=== PATIENT | female | born 1975 | race Caucasian/White ===

== ENCOUNTER 2016-12-26 11:02 | Outpatient (CLI) | payer MEDICAID ==
[~2016-12-26] VITALS: Ht 152.4 cm; Wt 90.9 kg
--- NOTE | ~2016-12-26 | HEMODYNAMI ---
PATIENT:GREG MCCLAIN MEDICAL RECORD: [id number] : 77 LOCATION:[facility] ADMISSION DATE: 12/26/16 Generatedon:12/26/201613:46 Patient name: GREG MCCLAIN Patient #: [id number] SSN: : [id number] Date of study: 12/26/2016 Page: Of Hemodynamic Procedure Report Patient Data Patient Demographics Procedure consent was obtained First Name: GREG Gender: Female Last Name: JOHNY : 1975 [facility] Initial: B Age: 41 year(s) Patient #: [id number] Race: Unknown Additional ID: [id number] Contact details Address: [address] [place] [address] State: [place] City: [facility] Zip code: [address] Past Medical History Allergies Allergen Reaction Date Comments Reported Penicillins 12/26/2016 Admission Admission Data Admission Date: 12/26/2016 Admission Time: 11:02 Procedure Procedure Types Cath Procedure Diagnostic Procedure LHC LHC w/Coronaries Miscellaneous Procedures Moderate Sedation up to 30 minutes Procedure Description Procedure Date Procedure Date: 12/26/2016 Procedure Start Time: 13:23 Procedure End Time: 13:46 Procedure Staff Name Function Jeremy Bocanegra MD Performing Physician Annalise Ritchie RT Scrub Cristopher Vizcarra RN Nurse Rafia Branham RT Monitor Procedure Data Cath Procedure Fluoroscopy Diagnostic fluoroscopy Total fluoroscopy Time: 7.2 time: 7.2 min min Diagnostic fluoroscopy Total fluoroscopy dose: 643 dose: 643 mGy mGy Contrast Material Contrast Material Type Amount (ml) Isovue 300 62 Entry Location Entry Primary Successful Side Size Upsize Upsize Entry Closure Aguilar ccessful Closure Location (Fr) 1 (Fr) 2 (Fr) Remarks Device Remarks Radial Right 6 Fr Mechanical artery Short Compression Estimated blood loss: 5 ml Diagnostic catheters Device Type Used For End Catheter Placement Diagnostic Terumo 5Fr LV Angiography [place] 110cm catheter Diagnostic Terumo 5Fr Right Coronary [place] 110cm catheter Angiography Terumo 5Fr Juan Jose 110cm Left Coronary catheter Angiography Diagnostic Infinity 5Fr Left Coronary JL 3.5 catheter Angiography Procedure Complications No complications Procedure Medications Medication Administration Route Dosage 0.9% NaCl I.V. 100 ml/hr Oxygen NC 2 l/min Heparin Flush Bag added to field 2 bags (1000units/500ml NS) Lidocaine 2% added to field 20 Versed I.V. 2 mg Fentanyl I.V. 100 mcg Radial Cocktail added to field 1 syringe (Verapomil 2mg/Nitro 400mcg/Heparin 1500units) Radial Cocktail I.A. 1 syringe (Verapomil 2mg/Nitro 400mcg/Heparin 1500units) Versed I.V. 1 mg Versed I.V. 1 mg Hemodynamics Rest Heart Rate: 97 (bpm) Pressure Samples Time Site Value (mmHg) Purpose Heart Use Rate(bpm) 13:26 LV 125/3,3 EDP 115 13:27 AO 115/77(94) Pullback 117 Gradients Valve Time Site Site 2 Mean SEP/DFP Peak To Heart Use 1 (mmHg) (sec/min) Peak Rate (mmHg) (bpm) Aortic 13:27 LV AO 8 17 117 115/77(94) Calculations Valve P-P Mean Valve Index Valve Source Name Gradient Area Flow (cm2) Aortic 8 8 Snapshots Pre Cath Intra NCS Post Cath Vital Signs Time Heart Resp SPO2 etCO2 [id number] NIBP (mmHg) Rhythm Pain Sedation Rate (ipm) (%) (mmHg) (mmHg) Status Level (bpm) 13:12:14 80 24 98 0 0 126/84(105) NSR 0 (11) 10(A) , No pain 13:16:57 105 19 98 0 0 121/77(101) NSR 0 (11) 10(A) , No pain 13:21:38 107 24 97 0 0 131/75(91) NSR 0 (11) 10(A) , No pain 13:26:20 126 25 95 0 0 124/72(98) NSR 0 (11) 10(A) , No pain 13:31:07 107 23 100 0 0 106/57(76) NSR 0 (11) 10(A) , No pain 13:35:46 105 26 100 0 0 121/70(90) NSR 0 (11) 10(A) , No pain 13:40:26 96 26 100 0 0 114/77(94) NSR 0 (11) 10(A) , No pain 13:45:07 94 27 100 0 0 122/73(100) NSR 0 (11) 10(A) , No pain Medications Time Medication Route Dose Verified Delivered Reason Notes Effectiveness by by 13:08:27 0.9% NaCl I.V. 100 Cristopher Cristopher Per ml/hr Zackery Vizcarra physician RN RN 13:08:44 Oxygen NC 2 l/min Cristopher Cristopher Per Zackery Vizcarra physician RN RN 13:09:05 Heparin Flush added 2 bags Cristopher Cristopher used for Bag to Lorigan Lorigan procedure (1000units/500ml field RN RN NS) 13:09:19 Lidocaine 2% added 20ml Cristopher Cristopher used for to vial Lorigan Lorigan procedure RN RN 13:22:44 Versed I.V. 2 mg Cristopher Cristopher for sedation Zackery Vizcarra RN, RN 13:22:59 Fentanyl I.V. 100 mcg Cristopher Cristopher for sedation Zackery Vizcarra RN, RN 13:24:08 Radial Cocktail added 1 Cristopher Cristopher used for (Verapomil to syringe Lorigan Lorigan procedure 2mg/Nitro field ROBERT JONES 400mcg/Heparin 1500units) 13:25:19 Radial Cocktail I.A. 1 Cristopher Jeremy for (Verapomil syringe Zackery Halma vasodilation 2mg/Nitro ROBERT GODFREY 400mcg/Heparin 1500units) 13:28:00 Versed I.V. 1 mg Cristopher Jeremy for sedation Zackery Bocanegra RN, MD 13:40:34 Versed I.V. 1 mg Cristopher Jeremy for sedation Zackery Bocanegra RN, MD Procedure Log Time Note 13:00:32 Rafia Counts RT(R) sent for patient. Start room use. 13:05:45 Patient received from Pre/Post Procedure Room to CCL 1 Alert and oriented. Tansferred to table in Supine position. 13:08:27 0.9% NaCl 100 ml/hr I.V. was administered by Cristopher Vizcarra RN; Per physician; 13:08:44 Oxygen 2 l/min NC was administered by Cristopher Vizcarra RN; Per physician; 13:09:05 Heparin Flush Bag (1000units/500ml NS) 2 bags added to field was administered by Cristopher Lorigan RN; used for procedure; 13:09:19 Lidocaine 2% 20ml vial added to field was administered by Cristopher Vizcarra RN; used for procedure; 13:11:23 Vital chart was started 13:17:37 Time tracking: Regular hours 13:17:41 Plan of Care:Hemodynamics will remain stable., Cardiac rhythm will remain stable., Comfort level will be maintained., Respiratory function will remain adequate., Patient/ family verbilizes understanding of procedure., Procedure tolerated without complication., Recovers from procedure without complications.. 13:17:51 Warm blankets applied, and derrick hugger turned on for patient comfort. 13:17:51 Correct patient and procedure confirmed by team. 13:17:52 Signed procedure consent form obtained from patient. 13:17:53 ECG and BP/O2 sat monitors applied to patient. 13:17:54 Full Disclosure recording started 13:18:07 H&P Date Dictated: 11/29/2016 Within 30 days and on chart., H&P Addendum completed by physician on day of procedure. (MUST COMPLETE FOR ALL OUTPATIENTS). 13:18:13 Pre-procedure instructions explained to patient. 13:18:13 Pre-op teaching completed and patient verbalized understanding. 13:18:17 Rhythm: sinus rhythm 13:18:19 Baseline sample Acquired. 13:18:22 Family in patients room. 13:18:23 Patient NPO since Midnight. 13:18:28 Patient allergic to Penicillins 13:18:32 Is the patient allergic to Iodine/contrast media? No. 13:18:34 Is patient on blood thinner?No 13:18:36 Patient diabetic? No. 13:18:39 Previous problem with sedation/anesthesia? No ? 13:18:40 Snore? Yes 13:18:41 Sleep apnea? No 13:18:42 Deviated septum? No 13:18:44 Opens mouth fully? Yes 13:18:44 Sticks out tongue? Yes 13:18:46 Airway obstruction? No ? 13:18:47 Dentures? No ? 13:18:49 Pre procedure: right dorsailis pedis pulse 2+ Normal; easily identifiable; not easily obliterated 13:18:52 Modified Karan's test Ulnar < 7 seconds 13:18:54 Patient pain scale 0/10 ?. 13:19:00 IV patent on arrival in left hand with 0.9% NaCl at KVO. 13:19:09 Lab results completed and on chart. 13:19:12 Right Radial & Right Groin area was prepped with chlora-prep and draped in sterile fashion 13:19:14 Alarms reviewed by R. N. 13:19:14 Sharps counted by scrub and verified by R.N. 13:19:19 Use device set Radial Dx 13:19:20 Acist Syringe opened to sterile field. 13:19:20 Medline Cath Pack opened to sterile field. 13:19:21 Bag Decanter opened to sterile field. 13:19:21 Terumo 6Fr Slender Glidesheath opened to sterile field. 13:19:21 St Harrison 260cm J .035 wire opened to sterile field. 13:19:22 Acist Hand Control opened to sterile field. 13:19:22 Acist Manifold opened to sterile field. 13:19:22 Tegaderm 4 x 4 opened to sterile field. 13:19:23 MBrace Wrist Support opened to sterile field. 13:19:26 Final Timeout: patient, procedure, and site verified with staff and physician. All members of the team are in agreement. 13:19:29 Right Radial site verified by team. 13:19:33 Physical assessment completed. ASA score P 2 - A patient with mild systemic disease as per Jeremy Bocanegra MD. 13:19:35 Sedation plan: IV Moderate Sedation Versed, Fentanyl 13:22:11 Zero performed for pressure channel P1 13:22:44 Versed 2 mg I.V. was administered by Cristopher Vizcarra RN; for sedation; 13:22:59 Fentanyl 100 mcg I.V. was administered by Cristopher Vizcarra RN; for sedation; 13:23:17 Procedure started. 13:23:22 Local anesthetic to right radial artery with Lidocaine 2% by Jeremy Bocanegra MD.INITIAL ACCESS ONLY 13:23:54 A 6 Fr Short sheath was inserted into the Right Radial artery 13:24:08 Radial Cocktail (Verapomil 2mg/Nitro 400mcg/Heparin 1500units) 1 syringe added to field was administered by Cristopher Vizcarra RN; used for procedure; 13:25:17 A Diagnostic Terumo 5Fr [place] 110cm catheter was advanced over the wire and used for LV Angiography. 13:25:19 Radial Cocktail (Verapomil 2mg/Nitro 400mcg/Heparin 1500units) 1 syringe I.A. was administered by Jeremy Bocanegra MD; for vasodilation; 13::01 LV gram done using EL 13::15 Injector settings: Ml/sec: 5, Volume: 15, 13::19 EF : 60 % 13:27:24 LV hemodynamics recorded. 13:28:00 Versed 1 mg I.V. was administered by Jeremy Bocanegra MD; for sedation; 13:28:54 A Diagnostic Terumo 5Fr [place] 110cm catheter was advanced over the wire and used for Right Coronary Angiography. 13:29:28 Catheter removed. 13:30:25 A Terumo 5Fr Juan Jose 110cm catheter was advanced over the wire and used for Left Coronary Angiography. removed, unable to cannulate. 13:33:30 A Diagnostic Infinity 5Fr JL 3.5 catheter was advanced over the wire and used for Left Coronary Angiography.removed, unable to cannulate 13:35:38 Medtronic Launcher 6Fr EBU 3.0 guide catheter opened to sterile field. 13:37:00 6 Fr EBU 3.0 guide catheter was inserted over the wire 13:37:30 LCA angiography performed. 13:38:47 Catheter removed. 13:39:06 Sheath removed intact; hemostasis achieved with Mechanical Compression to the Right Radial artery. 13:39:08 Procedure ended.(Physican Out) 13:39:17 Fluoroscopy time 07.20 minutes. 13:39:20 Flurop Dose total: 643 13:39:20 Fluoroscopy dose: 643 mGy 13:39:23 Contrast amount:Isovue 300 62ml. 13:39:24 Sharps counted by scrub and verified by R.N. 13:39:26 TR band inflated with 12cc of air. 13:39:27 Insertion/operative site no bleeding no hematoma. 13:39:33 Post right radial artery:stable, clean and dry 13:39:34 Post Procedure Pulses reassessed and unchanged 13:39:37 Post-procedure physical assessment completed. ASA score P 2 - A patient with mild systemic disease as per Jeremy Bocanegra MD. 13:39:39 Post procedure rhythm: unchanged. 13:39:41 Estimated blood loss: 5 ml 13:39:42 Post procedure instruction explained to patient.Patient verbalizes understanding. 13:39:42 Patient needs reinforcement of post procedure teaching. 13:39:53 Procedure type changed to Cath procedure, Diagnostic procedure, LHC, LHC w/Coronaries, Miscellaneous Procedures, Moderate Sedation up to 30 minutes 13:39:58 Procedure Complication : No complications 13:40:00 See physician's report for complete and final results. 13:40:09 Terumo TR Band Standard opened to sterile field. 13:40:34 Versed 1 mg I.V. was administered by Jeremy Bocanegra MD; for sedation; 13:45:26 Procedure and supply charges have been captured, reviewed, submitted and are correct. 13:45:37 Vital chart was stopped 13:45:38 Report given to Pre/Post Procedure Room. 13:45:42 Patient transfered to Pre/Post Procedure Room with Stretcher. 13:46:36 Procedure ended. 13:46:36 Full Disclosure recording stopped 13:46:39 End room use (Document Last) Device Usage Item Name Manufacture Quantity Catalog Hospital Part Current Minimal Lot# / Number Charge Number Stock Stock Serial# Code Acist Acist 1 47551 599846 273570 985823 20 Syringe Medical Systems Inc Medline Cardinal 1 [id number] 945372 72095 452943 5 Cath Pack Health Bag Microtek 1 2001S [id number] 24780 643573 5 Decanter Medical Inc. Terumo 6Fr Terumo 1 [id number] 045163 577360 836501 [address] St Harrison 1 014484 059181 220842 069522 30 260cm J .035 wire Acist Hand Acist 1 02946 978742 236200 553459 5 Control Medical Systems Inc Acist Acist 1 93883 129674 589981 450183 5 Manifold Medical Systems Inc Tegaderm 4 3M 1 1626W 077962 237205 087136 5 x 4 MBrace Advanced 1 140-0250-00 429404 77835 787447 5 Wrist Vascular Support Dynamics Diagnostic Terumo 1 40-6136 234866 368028 453461 5 Terumo 5Fr [place] 110cm catheter Terumo 5Fr Terumo 1 40-1054 867815 031670 172063 5 Juan Jose 110cm catheter Diagnostic Cardinal 1 [id number] 756190 616409 955595 5 Infinity Health 5Fr JL 3.5 catheter Medtronic Medtronic 1 [id number] 800062 48237 333781 0 Launcher 6Fr EBU 3.0 guide catheter Terumo TR Terumo 1 [id number] 585473 984279 806634 40 Band Standard Signature Audit [place] Stage Time Signature Unsigned Intra-Procedure 12/26/2016 Rafia 1:46:55 PM Counts RT(R) Signatures Monitor : Rafia Signature : Counts RT Date : Time : [address] [address]
[~2016-12-26 11:02] MED LIST: CYCLOBENZAPRINE10 MG PO; IBUPROFEN600 MG PO; PERCOCET 10/3251 TA1 PO; PRENATAL COMPLE1 TAB PO
[2016-12-26 11:55] VITALS: BP 121/79; Ht 152.4 cm; Wt 90.9 kg
[2016-12-26] MEDS ORDERED: IMITREX50 MG PO (11:59)
[2016-12-26] MEDS ORDERED: FIORICET-COD 51 EACH PO (12:00)
[2016-12-26] MEDS ORDERED: ROBAXIN500 MG PO (12:01)
[2016-12-26] MEDS ORDERED: MIRAPEX0.5 MG PO ×2 (12:01)
[2016-12-26] MEDS ORDERED: DEPO-PROVER150 MG/ML IM (12:02)
[2016-12-26 12:28] LABS: BASOPHILS 0.1 % (0-2); EOSINOPHILS 1.4 % (0-7); HEMATOCRIT 40.9 % (36.0-48.0); HEMOGLOBIN 13.8 g/dL (12-16); IMMATURE GRANULOCYTES 0.4 % (0-5); LYMPHOCYTES 35.6 % (15-50); MCH 31.6 pg (26.0-34.0); MCHC 33.7 g/dL (31.0-37.0); MCV 93.6 fL (80.0-100.0); MEAN PLATELET VOLUME 10.3 fL (7.4-10.4); NEUTROPHILS 56.5 % (40-80); PLATELET COUNT 249 10x3/uL (130-400); RBC 4.37 10x6/uL (4.00-5.40); RDW 12.3 % (11.5-14.5); WBC 7.3 10x3/uL (4.8-10.8)
[2016-12-26 12:37] LABS: CALC OSMOLALITY 275 mosm/kg (275-300); CARBON DIOXIDE 31.1 mmol/L (21.0-32.0); CHLORIDE - SERUM 106 mmol/L (98-107); CREATININE - SERUM 0.6 mg/dL (0.6-1.3); GLUCOSE 88 mg/dL (74-106); POTASSIUM - SERUM 3.8 mmol/L (3.5-5.1); SODIUM 140 mmol/L (136-145); UREA NITROGEN 7 mg/dL (7-18); eGFR NON AFRICAN AMERICAN > 90 mL/min (90-120)
--- NOTE | 2016-12-26 14:15 | NUR ---
1415 PO FLUIDS SERVED, PT DENIES ANY C/O. AT BEDSIDE, NO BLEEDING OR HEMATOMA AT CATH SITE. FINGERS WARM, CAP REFILL IS BRISK.
--- NOTE | 2016-12-26 14:28 | NUR ---
1400 RECEIVED PT FROM PHYSICAL DAMAGE APPRAISER, PT IS DROWSY. DENIES ANY C/O PAIN OR NAUSEA. VSS. TR BAND INTACT TO RIGHT WRIST WITH NO BLEEDING OR HEMATOMA NOTED. FINGERS WARM, CAP REFILL IS BRISK.
--- NOTE | 2016-12-26 14:32 | NUR ---
1430 PT DENIES ANY C/O. RR EVEN AND UNLABORED. VSS, AT BEDSIDE, CATH SITE FREE FROM BLEEDING OR HEMATOMA. FINGERS WARM, CAP REFILL IS BRISK.
--- NOTE | 2016-12-26 15:08 | NUR ---
1500 TR BAND DEFLATION STARTED, 4 CC OF AIR REMOVED WITH NO BLEEDING NOTED. PT DENIES ANY C/O. VSS. AT BEDSIDE.
--- NOTE | 2016-12-26 16:22 | NUR ---
1545 ALL AIR REMOVED FROM TR BAND WITH NO BLEEDING OR HEMATOMA NOTED AT SITE. FINGERS WARM, CAP REFILL IS BRISK. IV DC'D WITH CATH INTACT. PT IS DRESSING FOR DC TO HOME. 1600 DC INSTRUCTIONS HAVE BEEN REVIEWED WITH PT AND FAMILY, WRITTEN COPIES PROVIDED. 2X2 AND TEGADERM CDI TO RIGHT WRIST, NO BLEEDING NOTED AT SITE. PT ESCORTED TO PRIVATE AUTO VIA WC WITH DRIVING HER HOME.
--- NOTE | 2016-12-29 11:31 | OP ---
PATIENT NAME: GREG MCCLAIN MEDICAL RECORD: [id number] :77 LOCATION:D.[facility] ADMISSION DATE: SURGEON: RAMONA LEOS MD DATE OF OPERATION: 12/26/2016 PROCEDURES: Left heart catheterization, selective coronary angiography, right radial approach. CATHETERS: A 5-Indian sheath, 5/4 left and right [place]. The procedure was well tolerated. The patient was returned to the celestin and sheath was removed. TR band was placed. FINDINGS: Left ventriculography in 30-degree EL view: Normal wall motion. Normal systolic function. CORONARY ANATOMY. LEFT MAIN: Left main is free of disease. LAD: Free of disease in the diagonal system. CIRCUMFLEX: Free of disease in the marginal system. RIGHT CORONARY ARTERY: Dominant artery, gives rise to PDA, free of disease. IMPRESSION: Normal systolic function. Normal coronary anatomy. TRANSINT:[id number] Voice Confirmation ID: [id number] DOCUMENT ID: [id number] RAMONA LEOS MD at 1131 CC: [id number] DICTATION DATE: 12/26/16 1347 SENIOR ANALYST DEVELOPER: 12/26/16 1636 DEP CLI 12/26/16 [facility] [address] [place] [address]
== END 2016-12-26 16:00 | disposition home or self-care (01) ==
LOC: D.CATH 11:02
PROVIDERS: Internal Medicine Interventional Cardiology
DX: I20.9 Angina pectoris, unspecified (principal); R25.2 Cramp and spasm; R94.31 Abnormal electrocardiogram [ECG] [EKG]; R07.9 Chest pain, unspecified; F17.200 Nicotine dependence, unspecified, uncomplicated; R94.30 Abnormal result of cardiovascular function study, unspecified; Z01.812 Encounter for preprocedural laboratory examination